=== PATIENT | male | born 1960 ===

== ENCOUNTER → 2022-11-03 10:35 | Outpatient (BNVA) | payer OTHER, SELFPAY | PROVIDERS: PCP Physician Assistant; Visit Provider Student in an Organized Health Care Education/Training Program | DX: L40.50 Arthropathic psoriasis, unspecified (principal); L40.9 Psoriasis, unspecified | CPT/HCPCS: 99202 ==

== ENCOUNTER → 2023-01-25 11:52 | Outpatient (BNVA) | payer OTHER, SELFPAY | PROVIDERS: PCP Physician Assistant; Visit Provider Student in an Organized Health Care Education/Training Program | DX: L40.50 Arthropathic psoriasis, unspecified (principal) | CPT/HCPCS: 99212 ==

== ENCOUNTER 2023-08-02 11:49 | Outpatient (AMB) | payer OTHER, SELFPAY ==
--- NOTE | 2023-08-02 11:59 | MHC.OFFVIS ---
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 Much better overall. Denies any Swollen joints. Gets some pain in his toes after working out, sometimes at the end of a long day, improved in the morning. Gets rare psoriasis patches on his feet, applies calcipotriene cream Initial history: This is a 62-year-old male with a past medical history of psoriasis and undifferentiated inflammatory arthritis who presents for evaluation of psoriatic arthritis. The condition started back in 07/2020 when he had an abrupt flare of diffuse joint pain and swelling. He was evaluated by his PCP had significantly elevated inflammatory markers and was started on prednisone for about a week with significant improvement of his symptoms and resolution of his high inflammatory markers. Since then patient has been doing well for the most part. Recently has been having bilateral toe pain generally worse in the morning. He also has aches and pains affecting multiple areas depending on his level activity including his shoulders, knees, elbows. He has low back pain with activity. No prolonged morning stiffness. His psoriasis has been relatively well controlled, he rarely uses the cul Cipro trying cream. Continues to have patches on his elbows and he has itching in both ear canals. No history suggestive of uveitis or IBD. 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 Review of [employer] [facility] [place] Reports arthralgias Physical Exam Vital Signs: Last Vital Signs Temp 97.4 F 08/02/23 12:03 Pulse 65 08/02/23 12:03 BP 86/60 L 08/02/23 12:03 Pulse Ox 97 08/02/23 12:03 Oxygen Delivery Method Room Air 08/02/23 12:03 BMI result Body Mass Index 28.0 Const General: cooperative, healthy appearing, comfortable and no acute distress Nutritional Appearance: overweight Orientation/consciousness: patient oriented x3 Limitations: no limitations HEENT Head: Yes normocephalic and Yes atraumatic Resp Effort & Inspection: normal respiratory effort and able to speak in complete sentences Auscultation: clear to auscultation bilaterally Cardio Rate: regular rate Rhythm: regular rhythm Heart sounds: S1 normal heart sound present and S2 normal heart sound present GI Inspection: No distended Palpation (GI): Soft to palpation and nontender Neuro General: patient oriented x3 Extrem Other: Mild osteoarthritic changes of both hands with no active synovitis Bilateral nail pitting Bilateral knee pain with full flexion Normal Magalie test Bilateral foot bunions Results Reviewed Results Reviewed: X-RAY EXAM OF SHOULDER, COMPLETE ? Exam Date: 08/22/2020 10:17 AM Ordering Diagnosis: Chronic pain of both shoulders ? ? ? Bilateral shoulder series: ? HISTORY: Bilateral shoulder pain ? Right shoulder (4 views): Soft tissue calcification at supraspinatus insertion site. ?No focal bone pathology or or arthritis. ? Left shoulder (4 views): Punctate calcifications adjacent to left greater tuberosity. ?No focal ?bone pathology or arthritis. ? IMPRESSION: Bilateral calcific tendinopathy. ? Final X-RAY EXAM OF LOWER SPINE WITH OBLIQUES ? Exam Date: 08/22/2020 10:17 AM Ordering Diagnosis: Chronic bilateral low back pain without sciatica ? ? ? Lumbar spine series: ? HISTORY: Low back pain ? 4 views. ?Faint atherosclerotic calcification distal abdominal aorta. ? Slight convex right curvature thoracolumbar spine. ?No fracture or focal vertebral pathology. ? Moderate degenerative facet arthropathy L4-5 and L5-S1 with 6 mm anterolisthesis L4-5. ?Mild degenerative disc space narrowing L4-5 and L5-S1 levels. ?Sacroiliac joints are patent. ? IMPRESSION: Degenerative changes lower lumbar spine. Final X-RAY EXAM OF SACROILIAC JOINTS ? Exam Date: 08/22/2020 10:17 AM Ordering Diagnosis: Chronic bilateral low back pain without sciatica ? ? ? Sacroiliac joints: ? History: Sacroiliac joint pain ? 3 views. The sacroiliac joints appear patent. No arthritis or focal bone pathology is seen. ? IMPRESSION Normal sacroiliac joints. Final RADIOLOGIC EXAM CHEST 2 VIEWS ? Exam Date: 08/22/2020 10:24 AM Ordering Diagnosis: Undifferentiated inflammatory polyarthritis (HCC)Psoriasis ? ? ? PA AND LATERAL CHEST: ? History: Psoriatic arthritis ? No prior studies are available for comparison. ? No active lung or pleural pathology. Heart and mediastinal contours appear normal. No focal bone pathology. ? IMPRESSION No active lung disease. ? ? Final X-RAY EXAM OF HAND, 3+ VIEWS ? Exam Date: 08/12/2020 ?2:41 PM Ordering Diagnosis: PolyarthralgiaJoint swelling ? ? ? History: Bilateral hand pain and swelling. ? Bilateral hands, 3 views each: The right ulnar styloid is not attached to the ulna. ?This likely represents a developmental variant less likely stigmata of old trauma. ?There is some very faint adjacent soft tissue calcification. ?There are no appreciable degenerative changes or erosions. ?Bony and soft tissue structures are otherwise unremarkable. ? IMPRESSION: No identifiable erosions or degenerative changes. Labs in RF/CCP/GENEVA/HLA B27 all negative CRP elevated 3.16 in 2019 (<0.5) 0.66 after 10 days of steroids ESR nl ? ? Assessment & Plan Assessment & Plan (1) Psoriatic arthritis: Comment: dx 07/2020 Code(s): L40.50 - Arthropathic psoriasis, unspecified Plan: This is a 63-year-old male with PsA presents for follow-up. Symptoms started in 07/2020 with abrupt onset of diffuse joint pain and swelling, high inflammatory markers, symptoms rapidly resolved with steroids and improvement of his inflammatory markers. Since then patient has been doing well with no flare-ups Upon evaluation, he has bilateral nail pitting, there is no active synovitis . No inflammatory back pain symptoms. No symptoms suggestive of uveitis or IBD. Patient does not need any specific therapy at this point. Follow-up as needed Plan I spent 15 minutes reviewing patient's chart, evaluating patient, counseling patient and documenting in the chart Coding Level of Care Code Est Pt Level 3 (33739) Diagnoses Psoriatic arthritis L40.50
[2023-08-02 12:03] VITALS: BP 86/60; PULSE 65; TEMP 36.3; O2SAT 97; BMI 28.0
== END 2023-08-02 12:14 | disposition home or self-care (01) ==
PROVIDERS: PCP Physician Assistant; Visit Provider Student in an Organized Health Care Education/Training Program
DX: L40.50 Arthropathic psoriasis, unspecified (principal)
CPT/HCPCS: 99213

== ENCOUNTER → 2023-08-02 11:49 | Outpatient (BNVA) | payer OTHER, SELFPAY | PROVIDERS: PCP Physician Assistant; Visit Provider Student in an Organized Health Care Education/Training Program | DX: L40.50 Arthropathic psoriasis, unspecified (principal) | CPT/HCPCS: 99212 ==